=== PATIENT | female | born 1950 | race Caucasian/White ===

== ENCOUNTER → 2016-07-31 | Outpatient (CLI) | payer MEDICARE, OTHER | LOC: LAB 07:23 | PROVIDERS: ATTEND Internal Medicine | DX: R74.8 Abnormal levels of other serum enzymes (principal) | CPT/HCPCS: 36415; 82977; 84075 ==

== ENCOUNTER → 2016-08-07 | Outpatient (REF) | payer MEDICARE, OTHER | LOC: LAB 11:23 | PROVIDERS: ATTEND Internal Medicine | DX: Z11.59 Encounter for screening for other viral diseases (principal) | CPT/HCPCS: 86803 ==

== ENCOUNTER → 2016-08-15 | Outpatient (CLI) | payer MEDICARE, OTHER | LOC: RAD 09:58 | PROVIDERS: ATTEND Internal Medicine | DX: Z12.31 Encounter for screening mammogram for malignant neoplasm of breast (principal); Z78.0 Asymptomatic menopausal state | CPT/HCPCS: 77080; G0202 ==